=== PATIENT | female | born 1945 | race Caucasian/White ===

== ENCOUNTER 2017-08-10 13:59 | Outpatient (CLI) | payer MEDICARE, BC ==
[~2017-08-10 13:59] MED LIST: ASPIRIN EC81 MG ORAL; ATORVASTATIN CA20 MG ORAL; BIOTIN2500 MCG PO; COQ-10100 M1 PO; DIOVAN HCT 1601 EAC1 ORAL; FISH OIL500 MG PO; FLUOXETINE HCL10 M2 ORAL; MAGNESIUM400 M1 PO; METFORMIN HCL500 M1 ORAL; VITAMIN D31000 UNI2 PO; ZANTAC150 MG ORAL; ZOLPIDEM TARTRAT5 MG ORAL
[2017-08-10] MEDS ORDERED: CARAFATE1 G1 ORAL (14:18)
[2017-08-10] MEDS ORDERED: PROTONIX40 MG ORAL (14:18)
[2017-08-10 14:19] VITALS: BP 107/67
--- NOTE | 2017-08-10 15:20 | GI Progress Note ---
Assessment/Plan Problems: (1) Duodenal ulcer due to nonsteroidal anti-inflammatory drug (NSAID) ICD Codes: K26.9 - Duodenal ulcer, unspecified as acute or chronic, without hemorrhage or perforation; T39.395A - Adverse effect of other nonsteroidal anti- inflammatory drugs [NSAID], initial encounter SNOMED: 513163958, 483134010 (2) Submucosal lesion of esophagus ICD Codes: K22.8 - Other specified diseases of esophagus SNOMED: 500607147 (3) High cholesterol ICD Codes: E78.0 - Pure hypercholesterolemia SNOMED: 61028181 (4) HTN (hypertension) ICD Codes: I10 - Essential (primary) hypertension SNOMED: 94244271 (5) Dysphagia ICD Codes: R13.10 - Dysphagia, unspecified SNOMED: 71224032, 787700894 (6) Diabetes ICD Codes: E11.9 - Type 2 diabetes mellitus without complications SNOMED: 31246612 Status: stable Status Narrative Seen with Dr. Mendosa. Assessment/Plan Hx of NSAID induced DU HH Gastritis, HP negative last colonoscopy [address] Morris Recommendations: cont ppi RTC x 3 months repeat EUS x 3 years to re-evaluate esophageal lesion Subjective Subjective abdominal pain had recent [facility] visit Objective Last 24 Hour Vital Signs Date Time Temp Pulse Resp B/P (MAP) Pulse Ox O2 Delivery O2 Flow Rate FiO2 08/10/17 14:19 98.1 70 16 107/67 General Appearance: WD/WN, no apparent distress, alert Cardiovascular: normal rate Respiratory/Chest: normal breath sounds, no respiratory distress Abdominal Exam: normal bowel sounds, non tender, soft Extremities: normal range of motion, non-tender Amna Rodriguez N.PRadha Aug 10, 2017 15:20
== END 2017-08-10 14:45 | disposition home or self-care (01) ==
LOC: PAN 13:59
DX: K26.9 Duodenal ulcer, unspecified as acute or chronic, without hemorrhage or perforation (principal); K22.8 Other specified diseases of esophagus; E78.00 Pure hypercholesterolemia, unspecified; I10 Essential (primary) hypertension; R13.10 Dysphagia, unspecified; E11.9 Type 2 diabetes mellitus without complications; T39.395A Adverse effect of other nonsteroidal anti-inflammatory drugs [NSAID], initial encounter; X58.XXXA Exposure to other specified factors, initial encounter; Y93.9 Activity, unspecified; Y92.9 Unspecified place or not applicable
CPT/HCPCS: 99211

== ENCOUNTER 2017-08-23 09:02 | Day surgery (SDC) | payer MEDICARE, BC ==
[2017-08-23] VITALS (10 sets, daily range): BP systolic 97–118; BP diastolic 51–69
[~2017-08-23] VITALS: Ht 165.1 cm; Wt 67.1 kg
[~2017-08-23 09:02] MED LIST changes: +CARAFATE1 G1 ORAL; +PROTONIX40 MG ORAL
--- NOTE | 2017-08-23 09:47 | Pre-Procedure Note/Attestation ---
Pre-Procedure Note/Attestation Complete Prior to Procedure Planned Procedure: not applicable Procedure Narrative: EGd/EUS Indications for Procedure Pre-Operative Diagnosis: gastri sub mucosal lesion Attestation I attest that I discussed the nature of the procedure; its benefits; risks and complications; and alternatives (and the risks and benefits of such alternatives ), prior to the procedure, with the patient (or the patient's legal customer operations representative). I attest that, if there was a reasonable possibility of needing a blood transfusion, the patient (or the patient's legal customer operations representative) was given the [facility] standardized written summary, pursuant to the [place] Blood Safety Act ([place] Health and Safety Code # 1645, as amended). I attest that I re-evaluated the patient just prior to the surgery and that there has been no change in the patient's H&P, except as documented below: LILIBETH GILES Aug 23, 2017 09:47
--- NOTE | 2017-08-23 09:48 | Short Stay Surgery H&P ---
History of Present Illness History of Present Illness Chief Complaint see recent consult note HPI Hailey Dominguez is a 72 year old female who was admitted on for Esophagio Lesion Patient History Allergies: Coded Allergies: CALCIUM (Verified Allergy, Severe, 08/22/17) severe headache CODEINE (Unverified Allergy, Severe, 07/14/16) PAST MEDICAL HISTORY: Past Surgeries: Social History: Medication History Scheduled Aspirin Ec* (Aspirin Ec*), 81 MG ORAL DAILY, (Reported) Atorvastatin Calcium* (Atorvastatin Calcium*), 20 MG ORAL BEDTIME, (Reported) Biotin (Biotin), 5,000 MCG PO DAILY, (Reported) Fluoxetine Hcl* (Fluoxetine Hcl*), 20 MG ORAL DAILY, (Reported) Magnesium Oxide (Magnesium), 400 MG PO DAILY, (Reported) Metformin Hcl* (Metformin Hcl*), 500 MG ORAL DAILY, (Reported) Pantoprazole* (Protonix*), 40 MG ORAL DAILY, (Reported) Ubidecarenone (Coq-10), 200 PO DAILY, (Reported) Valsartan/Hydrochlorothiazide 160-25MG (Diovan Hct 160-25 Mg Tablet), 1 TAB ORAL DAILY, (Reported) Miscellaneous Medications Cholecalciferol (Vitamin D3) (Vitamin D3), 1,000 UNIT PO, (Reported) Discontinued Medications Ranitidine Hcl* (Zantac*), 150 MG ORAL PRN, (Reported) Discontinued Reason: Pt stopped taking med Sucralfate* (Carafate*), 1 GM ORAL FOUR TIMES A DAY, (Reported) Discontinued Reason: Pt stopped taking med Physical Exam Vital Signs Last Vital Signs Date Time Temp Pulse Resp B/P (MAP) Pulse Ox O2 Delivery O2 Flow Rate FiO2 08/23/17 09:28 97.5 65 18 103/69 97 Room Air Plan Attestation Are the patient's medical conditions optimized for surgery? LILIBETH GILES Aug 23, 2017 09:48
[2017-08-23 10:03] LABS: BASOPHILS % (AUTO) 1.8 % (0.0-2.0); LYMPHOCYTES % (AUTO) 36.8 % (20.0-45.0); MEAN CORPUSCULAR HEMOGLOBIN 30.6 PG (27.0-31.0); MEAN CORPUSCULAR HGB CONC 34.3 G/DL (32.0-36.0); MEAN CORPUSCULAR VOLUME 89 FL (80-99); MEAN PLATELET VOLUME 8.3 FL (6.5-10.1); MONOCYTES % (AUTO) 10.8 % (1.0-10.0); NEUTROPHILS % (AUTO) 44.6 % (45.0-75.0); PLATELET COUNT 261 K/UL (150-450); RED BLOOD COUNT 4.06 M/UL (4.20-5.40); RED CELL DISTRIBUTION WIDTH 11.3 % (11.6-14.8); WHITE BLOOD COUNT 4.9 K/UL (4.8-10.8)
[2017-08-23 10:13] LABS: INR 1.1 (0.9-1.1); PROTHROMBIN TIME 11.4 SEC (9.30-11.50)
[2017-08-23 10:23] LABS: ANION GAP 9 mmol/L (5-15); CALCIUM 9.4 MG/DL (8.5-10.1); CARBON DIOXIDE 28 MMOL/L (21-32); CHLORIDE 96 MMOL/L (98-107); CREATININE 0.7 MG/DL (0.55-1.30); POTASSIUM 3.9 MMOL/L (3.5-5.1); SODIUM 132 MMOL/L (136-145)
[2017-08-23 10:27] LABS: ALANINE AMINOTRANSFERASE 45 U/L (12-78); ALBUMIN/GLOBULIN RATIO 1.1 (1.0-2.7); ASPARTATE AMINO TRANSFERASE 32 U/L (15-37); TOTAL PROTEIN 7.3 G/DL (6.4-8.2)
--- NOTE | 2017-08-23 10:47 | Anethesia Preoperative Eval ---
Anesthesia Pre-op PMH/ROS General Date of Evaluation: Aug 23, 2017 Time of Evaluation: 10:55 Anesthesiologist: Otilio ASA Score: ASA 3 Mallampati Score Class I : Soft palate, uvula, fauces, pillars visible Class II: Soft palate, uvula, fauces visible Class III: Soft palate, base of uvula visible Class IV: Only hard plate visible Mallampati Classification: Class II Surgeon: Navya Diagnosis: esophageal lesion Surgical Procedure: EGD/EUS Anesthesia History: none Family History: no anesthesia problems Allergies: Coded Allergies: CALCIUM (Verified Allergy, Severe, 08/22/17) severe headache CODEINE (Unverified Allergy, Severe, 07/14/16) Medications: see eMAR Past Medical History Cardiovascular: Reports: HTN, other - high cholosterol Pulmonary: Denies: asthma, COPD, KRISTINE, other Gastrointestinal/Genitourinary: Reports: other - duodenal ulcer, dysphagia, esophagel lesion Neurologic/Psychiatric: Reports: depression/anxiety Endocrine: Reports: DM HEENT: Reports: cataract (L), cataract (R) Hematology/Immune: Reports: DVT Musculoskeletal/Integumentary: Reports: OA Anesthesia Pre-op Phys. Exam Physician Exam Last Vital Signs Date Time Temp Pulse Resp B/P (MAP) Pulse Ox O2 Delivery O2 Flow Rate FiO2 08/23/17 09:28 97.5 65 18 103/69 97 Room Air Constitutional: NAD Neurologic: CN 2-12 intact Cardiovascular: RRR Respiratory: CTA Gastrointestinal: S/NT/ND Airway Exam Mallampati Score: Class II MO: full ROM: full Teeth: intact - implants Dentures: no upper, no lower Anesthesia Pre-op A/P Labs Hematology Test 08/23/17 09:40 White Blood Count 4.9 K/UL (4.8-10.8) Red Blood Count 4.06 M/UL (4.20-5.40) L Hemoglobin 12.5 G/DL (12.0-16.0) Hematocrit 36.3 % (37.0-47.0) L Mean Corpuscular Volume 89 FL (80-99) Mean Corpuscular Hemoglobin 30.6 PG (27.0-31.0) Mean Corpuscular Hemoglobin Concent 34.3 G/DL (32.0-36.0) Red Cell Distribution Width 11.3 % (11.6-14.8) L Platelet Count 261 K/UL (150-450) Mean Platelet Volume 8.3 FL (6.5-10.1) Neutrophils (%) (Auto) 44.6 % (45.0-75.0) L Lymphocytes (%) (Auto) 36.8 % (20.0-45.0) Monocytes (%) (Auto) 10.8 % (1.0-10.0) H Eosinophils (%) (Auto) 6.0 % (0.0-3.0) H Basophils (%) (Auto) 1.8 % (0.0-2.0) Coagulation Test 08/23/17 09:40 Prothrombin Time 11.4 SEC (9.30-11.50) Prothromb Time International Ratio 1.1 (0.9-1.1) Activated Partial Thromboplast Time 26 SEC (23-33) Chemistry Test 08/23/17 09:40 Sodium Level 132 MMOL/L (136-145) L Potassium Level 3.9 MMOL/L (3.5-5.1) Chloride Level 96 MMOL/L (98-107) L Carbon Dioxide Level 28 MMOL/L (21-32) Anion Gap 9 mmol/L (5-15) Blood Urea Nitrogen 8 mg/dL (7-18) Creatinine 0.7 MG/DL (0.55-1.30) Estimat Glomerular Filtration Rate mL/min (>60) Glucose Level 95 MG/DL (74-106) Calcium Level 9.4 MG/DL (8.5-10.1) Total Bilirubin 0.7 MG/DL (0.2-1.0) Aspartate Amino Transf (AST/SGOT) 32 U/L (15-37) Alanine Aminotransferase (ALT/SGPT) 45 U/L (12-78) Alkaline Phosphatase 71 U/L (46-116) Total Protein 7.3 G/DL (6.4-8.2) Albumin 3.9 G/DL (3.4-5.0) Globulin 3.4 g/dL Albumin/Globulin Ratio 1.1 (1.0-2.7) Studies Pre-op Studies: EKG - NSB Risk Assessment & Plan Assessment: A&Ox3 Plan: MAC Status Change Before Surgery: No Pre-Antibiotics Given Within 1 Hr of Incision: No - none per surgeon Shelli Yañez CRNA 22, 2017 10:47
--- NOTE | 2017-08-23 10:48 | Immediate Post-Op Evaluation ---
Immediate Post-Op Evalulation Immediate Post-Op Evalulation Procedure: EGD/ EUS Date of Evaluation: Aug 23, 2017 Time of Evaluation: 11:30 IV Fluids: NSS 400 ml Blood Products: 0 Estimated Blood Loss: 0 Urinary Output: 0 Blood Pressure Systolic: 117 Blood Pressure Diastolic: 55 Pulse Rate: 53 Respiratory Rate: 18 O2 Sat by Pulse Oximetry: 98 Temperature (Fahrenheit): 97.1 Pain Score (1-10): 0 Nausea: No Vomiting: No Complications none Patient Status: awake, reacts, patent Hydration Status: adequate Given Within 1 Hr of Incision: Shelli Gracia CRNA Aug 23, 2017 10:48
--- NOTE | 2017-08-23 10:53 | 48 Hour Post Anesthesia Eval ---
Post Anesthesia Evaluation Procedure: EGD/ EUS Date of Evaluation: Aug 23, 2017 Time of Evaluation: 11:38 Blood Pressure Systolic: 107 0: 58 Pulse Rate: 54 Respiratory Rate: 18 Temperature (Fahrenheit): 97.2 O2 Sat by Pulse Oximetry: 99 Airway: patent Nausea: No Vomiting: No Pain Intensity: 0 Hydration Status: adequate Cardiopulmonary Status: WNL Mental Status/LOC: patient returned to baseline Follow-up care needed: patient intructions given Shelli Yañez CRNA Aug 23, 2017 10:53
[2017-08-23] MEDS ORDERED: Midazolam 2mg/2ml Inj ONE (11:00)
[2017-08-23] MEDS ORDERED: Propofol 200mg/20ml IV ONE (11:00)
[2017-08-23] MEDS ORDERED: Lidocaine 1% MPF 10mg/ml 5ml ONE (11:00)
--- NOTE | 2017-08-23 11:08 | Endoscopy Procedure Note ---
Endoscopy Procedure Note Indication for Procedure: esophageal submucosal lesion Procedures Performed: EGD, other - EUS Operative Findings/Diagnosis: same Specimen: none Pt Tolerated Procedure Well: Yes Estimated Blood Loss: none Anesthesiologist: see chart Anesthesia: MAC Implant(s) used?: No 50 yrs or older w/o bx or poly: Not Applicable 10yrs. F/U not recommended: Not Applicable LILIBETH GILES Aug 23, 2017 11:08
--- NOTE | 2017-08-23 21:01 | Procedure Note ---
DATE OF PROCEDURE: 08/23/2017 SURGEON: Sathish Mendosa M.D. PROCEDURE: Upper endoscopy and endoscopic ultrasound. ANESTHESIA: Per [employer]. Please see the chart. INSTRUMENT: Olympus adult flexible upper endoscope and EUS scope. INDICATION: Esophageal submucosal lesion. The procedure, risks, benefits, and possible consequences, including hemorrhage, aspiration, perforation and infection, and alternative treatments, were explained to the patient/legal guardian by Dr. Sathish Mendosa and the patient/legal guardian understood and accepted these risks. DESCRIPTION OF PROCEDURE: After informed consent was obtained and the patient was adequately sedated, first Olympus upper endoscope was advanced from mouth into the second portion of the duodenum and retroflexion was performed in the stomach. The patient had a vascular looking lesion at the GE junction. The rest of the exam was grossly within normal limit. At this time, the upper endoscope was retrieved and EUS scope was introduced. The lesion at the GE junction was about 6 mm duplicated cyst because it was anechoic, submucosal, not enlarging to any other layers. The rest of the exam was grossly within normal limits. Pancreatic parenchyma was grossly within normal limit. No pancreatic duct dilatation. The adrenal gland seen without any obvious pathology. Celiac axis was examined, without any pathology. Common bile duct measured roughly about 4 mm without any stone. Gallbladder was seen without any stone. The patient tolerated the procedure very well without any complication. SUMMARY FINDINGS: 1. Esophageal submucosal lesion, anechoic, 6 mm in size, most probably duplicated cyst. 2. Otherwise normal exam. RECOMMENDATIONS: The patient does not need followup for this lesion. Sathish Mendosa M.D. DR: PORTILLO JOB#: [id number] CC:
== END 2017-08-23 13:00 | disposition home or self-care (01) ==
LOC: GAS 09:02
DX: K22.9 Disease of esophagus, unspecified (principal); F32.9 Major depressive disorder, single episode, unspecified; F41.9 Anxiety disorder, unspecified; E11.9 Type 2 diabetes mellitus without complications; M19.90 Unspecified osteoarthritis, unspecified site; Z88.6 Allergy status to analgesic agent; Z86.718 Personal history of other venous thrombosis and embolism; Z79.82 Long term (current) use of aspirin; Z79.84 Long term (current) use of oral hypoglycemic drugs
CPT/HCPCS: 36415; 43259; 80053; 82962; 85025; 85610; 85730; 93005; J2250; J2704; 94003; 94150

== ENCOUNTER 2018-03-20 08:59 | Outpatient (CLI) | payer MEDICARE, BC ==
--- NOTE | 2018-03-20 09:27 | GI Progress Note ---
Assessment/Plan Problems: (1) GERD (gastroesophageal reflux disease) ICD Codes: K21.9 - Gastro-esophageal reflux disease without esophagitis SNOMED: 530297191 (2) Duodenal ulcer due to nonsteroidal anti-inflammatory drug (NSAID) ICD Codes: K26.9 - Duodenal ulcer, unspecified as acute or chronic, without hemorrhage or perforation; T39.395A - Adverse effect of other nonsteroidal anti- inflammatory drugs [NSAID], initial encounter SNOMED: 759036592, 313737393 (3) HTN (hypertension) ICD Codes: I10 - Essential (primary) hypertension SNOMED: 35804705 (4) High cholesterol ICD Codes: E78.0 - Pure hypercholesterolemia SNOMED: 21820962 (5) Submucosal lesion of esophagus ICD Codes: K22.8 - Other specified diseases of esophagus SNOMED: 096395123 Status: doing well, stable Status Narrative Seen with Dr. Mendosa. Assessment/Plan Decrease Omeprazole to 20mg. RTC x 6 months repeat EUS in 2019 for submucosal lesion The patient was seen and examined at bedside and all new and available data was reviewed in the patients chart. I agree with the above findings, impression and plan. (Patient seen earlier today. Signature stamp does not reflect patient encounter time.). - Sathish Mendosa MD Subjective Subjective GERD, epigastric pain when not taking ppi. Objective T 97.2 BP 111/60 65 HR 94 RA General Appearance: WD/WN, no apparent distress, alert Cardiovascular: normal rate Respiratory/Chest: normal breath sounds, no respiratory distress Abdominal Exam: normal bowel sounds, non tender, soft Extremities: normal range of motion, non-tender Wilder Rodriguez NP Mar 20, 2018 09:27
== END 2018-03-20 09:30 | disposition home or self-care (01) ==
LOC: PAN 08:59
DX: K21.9 Gastro-esophageal reflux disease without esophagitis (principal); K26.9 Duodenal ulcer, unspecified as acute or chronic, without hemorrhage or perforation; I10 Essential (primary) hypertension; E78.00 Pure hypercholesterolemia, unspecified; K22.8 Other specified diseases of esophagus
CPT/HCPCS: 99211

== ENCOUNTER 2019-07-23 09:08 | Outpatient (CLI) | payer MEDICARE, BC ==
[2019-07-23 11:26] LABS: BASOPHILS % (AUTO) 0.8 % (0.0-2.0); EOSINOPHILS % (AUTO) 1.8 % (0.0-3.0); HEMATOCRIT 39.9 % (37.0-47.0); HEMOGLOBIN 13.3 G/DL (12.0-16.0); LYMPHOCYTES % (AUTO) 36.7 % (20.0-45.0); MEAN CORPUSCULAR VOLUME 87 FL (80-99); MONOCYTES % (AUTO) 7.3 % (1.0-10.0); NEUTROPHILS % (AUTO) 53.4 % (45.0-75.0); PLATELET COUNT 317 K/UL (150-450); RED BLOOD COUNT 4.57 M/UL (4.20-5.40); RED CELL DISTRIBUTION WIDTH 11.4 % (11.6-14.8); WHITE BLOOD COUNT 7.9 K/UL (4.8-10.8)
[2019-07-23 11:37] LABS: ALANINE AMINOTRANSFERASE 35 U/L (12-78); ALBUMIN 3.8 G/DL (3.4-5.0); ALBUMIN/GLOBULIN RATIO 1.1 (1.0-2.7); ALKALINE PHOSPHATASE 78 U/L (46-116); AMYLASE 47 U/L (25-115); ANION GAP 12 mmol/L (5-15); ASPARTATE AMINO TRANSFERASE 21 U/L (15-37); BILIRUBIN,TOTAL 0.7 MG/DL (0.2-1.0); BLOOD UREA NITROGEN 9 mg/dL (7-18); CALCIUM 9.4 MG/DL (8.5-10.1); CARBON DIOXIDE 25 MMOL/L (21-32); CHLORIDE 102 MMOL/L (98-107); CREATININE 0.6 MG/DL (0.55-1.30); POTASSIUM 3.9 MMOL/L (3.5-5.1); SODIUM 139 MMOL/L (136-145)
== END 2019-07-23 11:08 | disposition home or self-care (01) ==
LOC: PAN 09:08
DX: R10.9 Unspecified abdominal pain (principal)
CPT/HCPCS: 36415; 80053; 82150; 83690; 85025; G0463

== ENCOUNTER 2019-07-23 10:23 | Outpatient (CLI) | payer MEDICARE, BC ==
--- NOTE | 2019-07-23 12:01 | General Progress Note ---
Assessment/Plan Assessment/Plan: Assessment/Plan Problems: (1) GERD (gastroesophageal reflux disease) ICD Codes: K21.9 - Gastro-esophageal reflux disease without esophagitis SNOMED: 077400458 (2) Duodenal ulcer due to nonsteroidal anti-inflammatory drug (NSAID) ICD Codes: K26.9 - Duodenal ulcer, unspecified as acute or chronic, without hemorrhage or perforation; T39.395A - Adverse effect of other nonsteroidal anti- inflammatory drugs [NSAID], initial encounter SNOMED: 549912765, 513849028 (3) HTN (hypertension) ICD Codes: I10 - Essential (primary) hypertension SNOMED: 53485595 (4) High cholesterol ICD Codes: E78.0 - Pure hypercholesterolemia SNOMED: 07635271 (5) Submucosal lesion of esophagus ICD Codes: K22.8 - Other specified diseases of esophagus Assessment/Plan abd CT labs plan EGD and colonoscopy depending on CT findings zofran prn repeat EUS in 2020 for submucosal lesion Subjective ROS Limited/Unobtainable: Yes Allergies: Coded Allergies: CALCIUM (Verified Allergy, Severe, 08/22/17) severe headache CODEINE (Unverified Allergy, Severe, 07/14/16) Subjective abd pain vomiting recent [facility] admission Objective General Appearance: alert EENT: normal ENT inspection Neck: supple Cardiovascular: normal rate Respiratory/Chest: decreased breath sounds Abdomen: normal bowel sounds, soft, tender Extremities: non-tender Sathish Mendosa MD Jul 23, 2019 12:01
--- NOTE | 2019-07-23 15:48 | Diagnostic Imaging Report ---
Clinical Indication: Abdominal pain Technique: Patient given oral contrast. IV administration nonionic contrast. Venous phase spiral acquisition obtained through the abdomen and pelvis. Multiplanar reconstructions were generated. Total dose length product 768 mGycm. CTDIvol(s) 14 mGy. Dose reduction achieved using automated exposure control Comparison: none Findings: The appendix is normal. There is colonic diverticulosis distally. No evidence of diverticulitis. Ingested contrast has traversed the entirety of the small bowel and colon. No small bowel distention or small bowel wall thickening. The distal esophagus, stomach, duodenum are unremarkable. No free or loculated intraperitoneal gas or fluid is evident. The liver, gallbladder, bile ducts, pancreas, spleen, adrenals are unremarkable. There is a prominent extrarenal pelvis on the right, but no evidence of hydronephrosis, hydroureter, renal or ureteral calculi. The uterus is absent. No pelvic mass or adenopathy. The lung bases demonstrate basilar atelectatic changes as well as mild groundglass opacities. The heart is enlarged. The bones demonstrate a mild levoscoliotic deformity. Impression: No acute abnormality Colonic diverticulosis. No evidence of diverticulitis. Evidence of prior hysterectomy. Cardiomegaly Bilateral basilar atelectatic changes. Basilar groundglass opacities may reflect mild pulmonary edema Mild lumbar scoliosis The CT scanner at [facility] is accredited by the [employer] and the scans are performed using protocols designed to limit radiation exposure to as low as reasonably achievable to attain images of sufficient resolution adequate for diagnostic evaluation.
== END 2019-07-23 12:23 | disposition home or self-care (01) ==
LOC: CAT 10:23
DX: K21.9 Gastro-esophageal reflux disease without esophagitis (principal); K26.9 Duodenal ulcer, unspecified as acute or chronic, without hemorrhage or perforation; I10 Essential (primary) hypertension; E78.00 Pure hypercholesterolemia, unspecified; K22.8 Other specified diseases of esophagus; Z88.6 Allergy status to analgesic agent; R11.10 Vomiting, unspecified
CPT/HCPCS: 36415; 74177; 80053; 82150; 83690; 85025; G0463; Q9967

== ENCOUNTER 2019-08-06 10:00 | Outpatient (CLI) | payer MEDICARE, BC ==
--- NOTE | 2019-08-06 11:15 | General Progress Note ---
Assessment/Plan Problem List: (1) Submucosal lesion of esophagus ICD Codes: K22.8 - Other specified diseases of esophagus SNOMED: 925924885 (2) Duodenal ulcer due to nonsteroidal anti-inflammatory drug (NSAID) ICD Codes: K26.9 - Duodenal ulcer, unspecified as acute or chronic, without hemorrhage or perforation; T39.395A - Adverse effect of other nonsteroidal anti- inflammatory drugs [NSAID], initial encounter SNOMED: 537760108, 156843355 (3) High cholesterol ICD Codes: E78.0 - Pure hypercholesterolemia SNOMED: 32991427 (4) HTN (hypertension) ICD Codes: I10 - Essential (primary) hypertension SNOMED: 57806370 (5) GERD (gastroesophageal reflux disease) ICD Codes: K21.9 - Gastro-esophageal reflux disease without esophagitis SNOMED: 670494190 (6) Diabetes ICD Codes: E11.9 - Type 2 diabetes mellitus without complications SNOMED: 72550788 Assessment/Plan: SUMMARY OF FINDINGS: 1. A 3 to 4 cm hiatal hernia. 2. Distal esophageal submucosal lesion, stable. 3. Gastritis, status post biopsy. 4. Internal hemorrhoids. 5. Diverticulosis. 6. One colonic polyp removed, see above for details ppi RTC prn Subjective ROS Limited/Unobtainable: Yes Allergies: Coded Allergies: CALCIUM (Verified Allergy, Severe, 08/22/17) severe headache CODEINE (Unverified Allergy, Severe, INSOMIA, 07/31/19) Objective General Appearance: alert EENT: normal ENT inspection Neck: normal alignment Cardiovascular: normal rate Respiratory/Chest: decreased breath sounds Abdomen: normal bowel sounds, non tender, soft Extremities: non-tender Sathish Mendosa MD Aug 06, 2019 11:15
[2019-08-06 13:11] VITALS: BP 116/66
== END 2019-08-06 12:00 | disposition home or self-care (01) ==
LOC: PAN 10:00
DX: K22.8 Other specified diseases of esophagus (principal); K26.9 Duodenal ulcer, unspecified as acute or chronic, without hemorrhage or perforation; E78.00 Pure hypercholesterolemia, unspecified; I10 Essential (primary) hypertension; K21.9 Gastro-esophageal reflux disease without esophagitis; E11.9 Type 2 diabetes mellitus without complications; K44.9 Diaphragmatic hernia without obstruction or gangrene; K29.70 Gastritis, unspecified, without bleeding; K57.90 Diverticulosis of intestine, part unspecified, without perforation or abscess without bleeding; K63.5 Polyp of colon; Z88.6 Allergy status to analgesic agent
CPT/HCPCS: 99212

== ENCOUNTER 2019-09-03 10:34 | Outpatient (CLI) | payer MEDICARE, BC ==
[2019-09-03 12:40] VITALS: BP 117/64
[2019-09-03] MEDS ORDERED: DEXILANT60 MG ORAL (12:40)
--- NOTE | 2019-09-04 10:43 | General Progress Note ---
Assessment/Plan Assessment/Plan: Assessment/Plan Problem List: (1) Submucosal lesion of esophagus ICD Codes: K22.8 - Other specified diseases of esophagus SNOMED: 214671933 (2) Duodenal ulcer due to nonsteroidal anti-inflammatory drug (NSAID) ICD Codes: K26.9 - Duodenal ulcer, unspecified as acute or chronic, without hemorrhage or perforation; T39.395A - Adverse effect of other nonsteroidal anti- inflammatory drugs [NSAID], initial encounter SNOMED: 298319875, 530485538 (3) High cholesterol ICD Codes: E78.0 - Pure hypercholesterolemia SNOMED: 51050619 (4) HTN (hypertension) ICD Codes: I10 - Essential (primary) hypertension SNOMED: 08296829 (5) GERD (gastroesophageal reflux disease) ICD Codes: K21.9 - Gastro-esophageal reflux disease without esophagitis SNOMED: 891713348 (6) Diabetes ICD Codes: E11.9 - Type 2 diabetes mellitus without complications SNOMED: 29570673 Assessment/Plan: SUMMARY OF FINDINGS: 1. A 3 to 4 cm hiatal hernia. 2. Distal esophageal submucosal lesion, stable. 3. Gastritis, status post biopsy. 4. Internal hemorrhoids. 5. Diverticulosis. 6. One colonic polyp removed, see above for details patient still has episode of abd pain and vomiting Tender marin umbilical area plan MRI of the abd RTC post above Subjective ROS Limited/Unobtainable: Yes Allergies: Coded Allergies: CALCIUM (Verified Allergy, Severe, 08/22/17) severe headache CODEINE (Unverified Allergy, Severe, INSOMIA, 07/31/19) Objective Last 24 Hour Vital Signs Date Time Temp Pulse Resp B/P (MAP) Pulse Ox O2 Delivery O2 Flow Rate FiO2 09/03/19 12:40 97.4 65 16 117/64 (81) 96 General Appearance: alert EENT: normal ENT inspection Neck: supple Cardiovascular: normal rate Respiratory/Chest: decreased breath sounds Abdomen: soft, hypoactive bowel sounds, tender Extremities: non-tender Sathish Mendosa MD Sep 04, 2019 10:43
== END 2019-09-03 12:35 | disposition home or self-care (01) ==
LOC: PAN 10:34
DX: K22.8 Other specified diseases of esophagus (principal); K26.9 Duodenal ulcer, unspecified as acute or chronic, without hemorrhage or perforation; E78.00 Pure hypercholesterolemia, unspecified; I10 Essential (primary) hypertension; K21.9 Gastro-esophageal reflux disease without esophagitis; E11.9 Type 2 diabetes mellitus without complications; K44.9 Diaphragmatic hernia without obstruction or gangrene; K29.70 Gastritis, unspecified, without bleeding; K64.8 Other hemorrhoids; K57.90 Diverticulosis of intestine, part unspecified, without perforation or abscess without bleeding; K63.5 Polyp of colon; R10.9 Unspecified abdominal pain; R11.10 Vomiting, unspecified; Z88.6 Allergy status to analgesic agent
CPT/HCPCS: 99212